=== PATIENT | male | born 1965 | race Caucasian/White ===

== ENCOUNTER 2024-03-27 09:34 | Day surgery (SDC) | payer OTHER ==
[~2024-03-27 09:34] MED LIST: Bupivacaine 0.5% 50 ML MDV ONE; Lidocaine 1% with EPINEPHrine 1:100,000 50 ML MDV ONE; Midazolam 1 MG/ML 2 ML SDV ONE; Propofol 200 MG/20 ML SDV ONE; fentaNYL 50 MCG/ML SDV ONE
[2024-03-27] MEDS ORDERED: Sodium Chloride 0.9% 1,000 ML IV SCH (10:00)
[2024-03-27] MEDS: ceFAZolin 2 GM in Premix Bag 1 BAG IV ONE (10:30)
== END 2024-03-27 11:55 | disposition home or self-care (01) ==
LOC: JP.SDS 09:34
PROVIDERS: ATTEND Surgery
DX: M71.22 Synovial cyst of popliteal space [Baker], left knee (principal); S89.92XA Unspecified injury of left lower leg, initial encounter; F17.200 Nicotine dependence, unspecified, uncomplicated; I10 Essential (primary) hypertension; E66.9 Obesity, unspecified
CPT/HCPCS: 87070; 87075; 87205; J0665; J0690; J2250; J2704; J3010

== ENCOUNTER 2024-11-12 06:34 | Day surgery (SDC) | payer OTHER ==
[2024-11-12] MEDS: Lactated Ringers 1,000 ML IV SCH (06:56)
[2024-11-12 07:03] LABS: HEMATOCRIT 40.5 % (38.4-49.7); HEMOGLOBIN 14.1 g/dL (12.9-16.9); MEAN CORPUSCULAR HGB CONC 34.8 g/dL (31.6-35.5); RED BLOOD CELL COUNT 4.55 M/uL (4.14-5.76); WHITE BLOOD CELL COUNT,WBC 7.1 K/uL (3.2-11.0)
[2024-11-12 07:18] LABS: ANION GAP 8.6 mmol/L (5.0-14.0); CALCIUM 9.2 mg/dL (8.5-10.1); CREATININE 1.1 mg/dL (0.8-1.3); EST CRCL DRUG DOSING (CG) 78.38 mL/min; POTASSIUM,K 4.1 mmol/L (3.6-5.2)
[2024-11-12] MEDS ORDERED: fentaNYL 250 MCG/5 ML SDV ONE (07:19)
[2024-11-12] MEDS ORDERED: Rocuronium 50 MG/5 ML Vial ONE (07:20)
[2024-11-12] MEDS ORDERED: Propofol 200 MG/20 ML SDV ONE (07:20)
[2024-11-12] MEDS ORDERED: Ondansetron 4 MG/2 ML SDV ONE (07:20)
[2024-11-12] MEDS ORDERED: Succinylcholine 200 MG/10 ML MDV ONE (07:20)
[2024-11-12] MEDS ORDERED: Glycopyrrolate 0.2 MG/ML 5 ML MDV ONE (07:20)
[2024-11-12] MEDS ORDERED: Dexamethasone 4 MG/ML SDV ONE (07:20)
[2024-11-12] MEDS ORDERED: Neostigmine Methylsulfate 10 MG/10 ML MDV ONE (07:20)
[2024-11-12] MEDS: Nozin Nasal Sanitizer NASBOTH ONE (07:44)
[2024-11-12] MEDS: ceFAZolin 2 GM in Premix Bag 1 BAG IV ONE (07:58)
[2024-11-12] MEDS ORDERED: ePHEDrine 50 MG/ML SDV ONE (08:15)
[2024-11-12] MEDS ORDERED: fentaNYL 100 MCG/2 ML SDV ONE (08:46)
[2024-11-12] MEDS ORDERED: Lactated Ringers 1,000 ML ONE (08:47)
[2024-11-12] MEDS: Bupivacaine 0.5% 50 ML MDV ONE (08:49)
[2024-11-12] MEDS ORDERED: Sugammadex Sodium 200 MG/2 ML VIAL IV ONE (09:00)
== END 2024-11-12 10:55 | disposition home or self-care (01) ==
LOC: JP.SDS 06:34
PROVIDERS: ATTEND Specialist
DX: M65.862 Other synovitis and tenosynovitis, left lower leg (principal); M22.42 Chondromalacia patellae, left knee; M23.301 Other meniscus derangements, unspecified lateral meniscus, left knee; I10 Essential (primary) hypertension; I48.91 Unspecified atrial fibrillation
CPT/HCPCS: 01400; 29875; 36415; 80048; 85027; A9270; J0330; J0665; J0690; J1100; J1596; J2405; J2704; J2710; J3010; J7120; J3490

== ENCOUNTER 2025-04-01 10:05 | Inpatient (IN) | payer OTHER, BC ==
[~2025-04-01 10:05] MED LIST changes: -Bupivacaine 0.5% 50 ML MDV ONE; -Lidocaine 1% with EPINEPHrine 1:100,000 50 ML MDV ONE; +fentaNYL 100 MCG/2 ML SDV ONE; -fentaNYL 50 MCG/ML SDV ONE
[2025-04-01 10:33] LABS: PLATELET COUNT,PLT 221.0 K/uL (130-375); RED BLOOD CELL COUNT 4.56 M/uL (4.14-5.76); WHITE BLOOD CELL COUNT,WBC 6.7 K/uL (3.2-11.0)
[2025-04-01 10:46] LABS: BLOOD UREA NITROGEN,BUN 14.0 mg/dL (7-18); CARBON DIOXIDE,CO2 29.0 mmol/L (21-32); CHLORIDE,CL 105.0 mmol/L (100-108); CREATININE 1.0 mg/dL (0.8-1.3); EST CRCL DRUG DOSING (CG) 86.22 mL/min; ESTIMATED GFR 86.0 mL/min (>60); GLUCOSE RANDOM 107.0 mg/dL (74-106); POTASSIUM,K 3.8 mmol/L (3.6-5.2); SODIUM,NA 139.0 mmol/L (140-148)
[2025-04-01] MEDS: Nozin Nasal Sanitizer NASBOTH SCH (10:47)
[2025-04-01] MEDS: Lactated Ringers 1,000 ML IV SCH (11:05)
[2025-04-01] MEDS ORDERED: fentaNYL 100 MCG/2 ML SDV ONE (12:35)
[2025-04-01] MEDS ORDERED: Midazolam 1 MG/ML 2 ML SDV ONE ×2 (12:35→12:39)
[2025-04-01] MEDS ORDERED: ePHEDrine 50 MG/ML SDV ONE (13:02)
[2025-04-01] MEDS ORDERED: Propofol 200 MG/20 ML SDV ONE ×5 (13:10→14:50)
[2025-04-01] MEDS ORDERED: Lactated Ringers 1,000 ML ONE ×2 (14:33)
[2025-04-01] MEDS ORDERED: Ondansetron 4 MG/2 ML SDV IVPUSH PRN (15:09)
[2025-04-01] MEDS ORDERED: Magnesium Hydroxide 400 MG/5 ML Susp 30 ML Cup PO PRN (15:09)
[2025-04-01] MEDS: Ketorolac 30 MG/ML SDV IVPUSH PRN (16:37)
[2025-04-01] MEDS ORDERED: CEFAZOLIN IV SCH (18:00)
[2025-04-01] MEDS: Diltiazem 120 MG Cap.CD PO SCH (20:40)
[2025-04-01] MEDS ORDERED: Nozin Nasal Sanitizer NASBOTH SCH (21:00)
[2025-04-02] MEDS: Ketorolac 30 MG/ML SDV IVPUSH SCH (00:52)
[2025-04-02] MEDS: Aspirin 325 MG Tab.EC PO SCH (08:32)
[2025-04-02] MEDS: FLUTICASONE FUROATE 100 MCG INH SCH (08:34)
== END 2025-04-03 14:38 | disposition home or self-care (01) | DRG 468 ==
LOC: JP.SDS 10:05 → JP.2SS 15:09 → JP.SDS 04-02 17:12 → JP.2SS 04-02 17:13
PROVIDERS: ADMIT Specialist; ATTEND Specialist
PROC: 0SWD0JZ Revision of Synthetic Substitute in Left Knee Joint, Open Approach (ICD-10-PCS; principal; 2025-04-02)
DX: M17.12 Unilateral primary osteoarthritis, left knee (principal)
CPT/HCPCS: 01402-QZ; 36415; 73560-26-LT; 73560-LT; 80048; 85018; 85027; 97110-GP; 97161-GP; 97165-GO; 97530-GP; 97535-GO; A9270-GY; C1713; C1776; J0665; J0690; J1885; J2250; J2270; J2704; J3010; J7030; J7120

== ENCOUNTER 2025-07-17 08:27 | Day surgery (SDC) | payer BC ==
[2025-07-17] MEDS: Lactated Ringers 1,000 ML IV SCH (08:39)
[2025-07-17] MEDS ORDERED: Midazolam 1 MG/ML 2 ML SDV ONE (08:56)
[2025-07-17] MEDS ORDERED: fentaNYL 50 MCG/ML SDV ONE (08:56)
[2025-07-17] MEDS ORDERED: Propofol 200 MG/20 ML SDV ONE (08:56)
== END 2025-07-17 11:20 | disposition home or self-care (01) ==
LOC: JP.SDS 08:27
PROVIDERS: ATTEND Surgery
DX: Z12.11 Encounter for screening for malignant neoplasm of colon (principal); K57.30 Diverticulosis of large intestine without perforation or abscess without bleeding; E78.00 Pure hypercholesterolemia, unspecified; I10 Essential (primary) hypertension; F41.9 Anxiety disorder, unspecified; E66.9 Obesity, unspecified; J45.909 Unspecified asthma, uncomplicated; F17.210 Nicotine dependence, cigarettes, uncomplicated; Z86.0100 Personal history of colon polyps, unspecified; Z79.899 Other long term (current) drug therapy
CPT/HCPCS: 45378; J2250; J2704; J3010; J7120; 00812-QZ